=== PATIENT | male | born 1975 | race Caucasian/White ===

== ENCOUNTER 2017-05-22 22:05 | Emergency (ER) | payer SELFPAY ==
[~2017-05-22] VITALS: Ht 182.9 cm; Wt 175.5 kg
[~2017-05-22 22:05] MED LIST: IBUP-238 PO
[2017-05-22 22:10] VITALS: BP 228/100; PULSE 95; RESP 22; TEMP 98.6; O2SAT 94
[2017-05-22] MEDS ORDERED: BACT800T5 PO (23:08)
--- NOTE | 2017-05-22 23:09 | PD ---
HPI Chief Complaint: Pain: Acute or Chronic Time Seen by Provider: 22:57 Travel History International Travel<30 days: No Contact w/Intl Traveler<30days: No Traveled to known affect area: No History of Present Illness HPI The patient is a 42-year-old male that states he wore a steel toe boot that was tight and pushed up against his right great toenail which is raised up and poorly trimmed and thick and caused pain around the nail where a paronychia would normally be located. This happened one day ago. He has only had this for a single day. He does not want it cut on. PFSH Past Medical History Asthma: Yes Diminished Hearing: No Social History Alcohol Use: Yes (RARE) Tobacco Use: Yes (1 PPD X 10 YEARS) Substance Use: No Allergies-Medications (Allergen,Severity, Reaction): Coded Allergies: No Known Allergies (Verified , 05/22/17) Reported Meds & Prescriptions Reported Meds & Active Scripts Active Bactrim DS (Sulfamethoxazole-Trimethoprim) 800-160 Mg Tab 1 Tab PO BID Review of Systems Except as stated in HPI: all other systems reviewed are Neg Physical Exam Narrative GENERAL: Well-nourished, obese patient in slight apparent distress with areas right great toe pain. His vital signs show blood pressure 220/100 and respirations 22 and oximetry 94% and heart rate of 95 and temperature 98.6. SKIN: Focused skin assessment warm/dry. HEAD: Normocephalic. EYES: No scleral icterus. No injection or drainage. NECK: Supple, trachea midline. No JVD or lymphadenopathy. CARDIOVASCULAR: Regular rate and rhythm without murmurs, gallops, or rubs. RESPIRATORY: Breath sounds equal bilaterally. No accessory muscle use. GASTROINTESTINAL: Abdomen soft, non-tender, nondistended. MUSCULOSKELETAL: No cyanosis, or edema. The right great toenail is raised up slightly, thick and very tender to the touch. There is erythema most all the way around where the nail attaches. This probably is an early paronychia. He clearly wore a poorly fitting shoe and the toenail needs trimming. No fluctuance is felt. BACK: Nontender without obvious deformity. No CVA tenderness. Data Data Last Documented VS Vital Signs Date Time Temp Pulse Resp B/P (MAP) Pulse Ox O2 Delivery O2 Flow Rate FiO2 05/22/17 23:21 87 18 198/101 (133) 95 Room Air 05/22/17 22:10 98.6 Orders Orders Clonidine (Catapres) (05/22/17 23:15) Sulfamet-Trimeth Ds 800-160 Mg (Bactrim (05/22/17 23:15) MDM Medical Decision Making Medical Screen Exam Complete: Yes Emergency Medical Condition: Yes Medical Record Reviewed: Yes Differential Diagnosis Early paronychia, ingrown nail patient unlikely, thickened nail Narrative Course The patient may have an early paronychia. The patient does not want this cut on and this is understandable because it shows no fluctuance and would be an extremely early paronychia. Blade drainage at this time is of questionable value. The patient needs to see a pallet repairer, have his nail trimmed properly and wear properly fitting shoes. He should soak the toe two to 3 times daily at least 30 minutes in warm water. He will be given a prescription for 10 days of Bactrim DS. Diagnosis Primary Impression: Paronychia of great toe of right foot Additional Impression: Elevated blood pressure reading Additional Instructions: As we discussed, it is necessary to follow-up with a pallet repairer. The pallet repairer on [facility] is Dr. Stroud. The toenail needs to be properly trimmed and you need to wear properly fitting shoe. Soak the foot 3 times daily and the antibiotic is one tablet twice daily. He will also need to see a primary care physician about her elevated blood pressure. Med/Other Pt SpecificInfo: Prescription(s) given Scripts Sulfamethoxazole-Trimethoprim (Bactrim DS) 800-160 Mg Tab 1 TAB PO BID for Infection, #20 TAB 0 Refills Prov: Kev Montes MD 05/22/17 Disposition: 01 DISCHARGE HOME Condition: Stable Kev Montes MD May 22, 2017 23:09
[2017-05-22] MEDS ORDERED: cloNIDine HCL 0.1 MG TAB PO ONE (23:15)
[2017-05-22] MEDS ORDERED: SULFAMETHOXAZOLE-TRIMETHOPRIM DS 800-160 MG TAB PO ONE (23:15)
[2017-05-22 23:21] VITALS: BP 198/101; PULSE 87; RESP 18; O2SAT 95
[2017-05-22 23:56] VITALS: BP 207/93
[2017-05-23] MEDS ORDERED: IBUP800T23 PO (00:04)
== END 2017-05-23 00:14 | disposition home or self-care (01) ==
LOC: PHED 22:05
DX: L03.039 Cellulitis of unspecified toe (principal)
CPT/HCPCS: 99283